=== PATIENT | female | born 1930 | race Caucasian/White ===

== ENCOUNTER 2016-10-26 20:28 | Emergency (ER) | payer MEDICARE ==
[2016-10-26 20:34] VITALS: BP 161/61
--- NOTE | 2016-10-26 21:04 | UC ---
Dizzy HPI HPI Summary: 86 y/o female , no significant pmhx 1 day hx of dizziness that started this morning,, very unsteady on her feet and cannot walk no chest pain , no n/v/d/c , no urinary sx. denies any headaches, no visual changes, - History Of Current Complaint Chief Complaint: UCDizziness Stated Complaint: DIZZY/OFF BALANCE Time Seen by Provider: 10/26/16 20:32 Hx Obtained From: Patient, Family/Mud Logger Onset/Duration: Gradual Onset, Lasting Days - 1, Still Present Timing: Constant Severity Initially: Severe Severity Currently: Severe Character: Head Spinning, Room Spinning, Weak, Dizzy Alleviating Factor(s): Lying Down, Closing Eyes Associated Signs And Symptoms: Negative: Nausea, Vomiting, Diaphoresis, Tinnitus , Chest Pain, SOB, Palpitations, Unsteady Gait, Visual Changes, Decreased Oral Intake, Change In Medication, Change In Diet, OTC Medications - Allergies/Home Medications Allergies/Adverse Reactions: Allergies Allergy/AdvReac Type Severity Reaction Status Date / Time Aloe Allergy Mild red Verified 10/26/16 20:34 PMH/Surg Hx/FS Hx/Imm Hx Previously Healthy: Yes - Surgical History Surgical History: Yes Surgery Procedure, Year, and Place: hysterectomy,tonsilectomy,cataract lens replacement - Family History Known Family History: Positive: Hypertension Negative: Blood Disorder - Social History Alcohol Use: None Substance Use Type: None Smoking Status (MU): Never Smoked Tobacco Review of Systems Constitutional: Negative Skin: Negative Eyes: Negative ENT: Negative Respiratory: Negative Neurological: Weakness All Other Systems Reviewed And Are Negative: Yes Physical Exam Triage Information Reviewed: Yes Appearance: Well-Appearing, No Pain Distress, Well-Nourished Vital Signs: Initial Vital Signs Temp 98.7 F 10/26/16 20:30 Pulse 72 10/26/16 20:30 Resp 18 10/26/16 20:30 BP 161/61 10/26/16 20:30 Pulse Ox 100 10/26/16 20:30 Vital Signs Reviewed: Yes Eyes: Positive: Conjunctiva Clear ENT: Positive: Normal ENT inspection, Hearing grossly normal, Pharynx normal Neck: Positive: Supple, Nontender, No Lymphadenopathy Respiratory: Positive: Chest non-tender, Lungs clear, Normal breath sounds, No respiratory distress Cardiovascular: Positive: RRR, No Murmur, Pulses Normal Abdominal Exam: Normal Abdomen Description: Positive: Nontender, Soft. Negative: CVA Tenderness (R), CVA Tenderness (L), Distended, Guarding Bowel Sounds: Positive: Present Musculoskeletal: Positive: Strength Intact, ROM Intact, No Edema Neurological: Positive: Alert. Negative: Unresponsive, Abnormal Muscle Tone UC Physical Exam Vital Signs On Initial Exam: Initial Vitals Temp Pulse Resp BP Pulse Ox 98.7 F 72 18 161/61 100 10/26/16 20:30 10/26/16 20:30 10/26/16 20:30 10/26/16 20:30 10/26/16 20:30 - Neurological Exam Neurological: Sensory/Motor Intact, Alert, Oriented to Person Place, Time, CN Intact II-III, Reflexes Intact, Abnormal Gait, Speech Normal Dizzy Course/Dx - Course Course Of Treatment: dizzy, unsteady gait. will have the pt. go to [facility] ED for eval. spoke with DR. Atkins - Differential Dx/Diagnosis Provider Diagnoses: dizzy. unsteady gait Discharge - Discharge Plan Condition: Stable Disposition: HOME Referrals: Pau Hansen MD [Primary Care Provider] -
== END 2016-10-26 21:08 | disposition left against medical advice (07) ==
LOC: UCCORT 20:28
DX: R42 Dizziness and giddiness (principal); R26.9 Unspecified abnormalities of gait and mobility
CPT/HCPCS: 93005; 99212; G0463

== ENCOUNTER 2016-12-31 20:40 | Emergency (ER) | payer MEDICARE ==
[2016-12-31 20:48] VITALS: BP 154/70
--- NOTE | 2016-12-31 20:48 | UC ---
Abdominal Pain Female HPI - HPI Summary HPI Summary: 86 YEAR OLD FEMALE PRESENTS WITH COMPLAINS OF SEVERE ABDOMINAL PAIN AND CONSTIPATION. - History of Current Complaint Stated Complaint: LOWER ABDOMINAL PAIN Time Seen by Provider: 12/31/16 20:45 Hx Obtained From: Patient Onset/Duration: Lasting Hours Severity Initially: Moderate Severity Currently: Moderate Pain Scale Used: 0-10 Numeric - 5 Location: Diffuse Character: Aching Aggravating Factor(s): Movement Alleviating Factor(s): Nothing Associated Signs and Symptoms: Positive: Constipation Allergies/Adverse Reactions: Allergies Allergy/AdvReac Type Severity Reaction Status Date / Time Aloe Allergy Mild red Verified 12/31/16 20:48 PMH/Surg Hx/FS Hx/Imm Hx Previously Healthy: Yes - Surgical History Surgical History: Yes Surgery Procedure, Year, and Place: hysterectomy,tonsilectomy,cataract lens replacement - Family History Known Family History: Positive: Hypertension Negative: Blood Disorder - Social History Alcohol Use: None Substance Use Type: None Smoking Status (MU): Never Smoked Tobacco Review of Systems Constitutional: Negative Skin: Negative Eyes: Negative ENT: Negative Respiratory: Negative Cardiovascular: Negative Gastrointestinal: Abdominal Pain, Nausea Genitourinary: Negative Motor: Negative Neurovascular: Negative Musculoskeletal: Negative Neurological: Negative Psychological: Negative All Other Systems Reviewed And Are Negative: Yes Physical Exam Triage Information Reviewed: Yes Eye Exam: Normal ENT Exam: Normal Dental Exam: Normal Neck exam: Normal Neck: Positive: 1 Respiratory Exam: Normal Cardiovascular Exam: Normal Abdomen Description: Positive: Distended Bowel Sounds: Positive: Present Musculoskeletal Exam: Normal Neurological Exam: Normal Psychological Exam: Normal Skin Exam: Normal Abd Pain Female Course/Dx - Differential Dx/Diagnosis Provider Diagnoses: SEVERE ABDOMINAL PAIN Discharge - Discharge Plan Condition: Stable Disposition: HOME Patient Education Materials: Abdominal Pain (ED) Referrals: Pau Hansen MD [Primary Care Provider] - Additional Instructions: PLEASE GO TO ER TO RULE PESUDO OBSTRUCTION VS CECAL VOLVULUS
== END 2016-12-31 20:59 | disposition home or self-care (01) ==
LOC: UCCORT 20:40
DX: R10.30 Lower abdominal pain, unspecified (principal); R11.0 Nausea; K59.00 Constipation, unspecified; Z90.710 Acquired absence of both cervix and uterus
CPT/HCPCS: 99211; G0463

== ENCOUNTER 2017-07-01 12:06 | Emergency (ER) | payer MEDICARE ==
[2017-07-01 13:48] VITALS: BP 181/60
--- NOTE | 2017-07-01 14:25 | UC ---
Back Pain HPI - HPI Summary HPI Summary: right lower back pain x 12 days s/p fall on her lower back 2 weeks ago , pain on her right lower back , no radiation , increase pain with movement , walking - History of Current Complaint Chief Complaint: UCBackPain Stated Complaint: BACK PAIN (FALL 06/19) Time Seen by Provider: 07/01/17 14:00 Hx Obtained From: Patient Onset/Duration: Sudden Onset, Lasting Days - 12, Still Present Timing: Constant Severity Initially: Moderate Severity Currently: Moderate Pain Intensity: 8 Back Pain: Is Discrete @ - right lower back Character: Aching Aggravating Factor(s): Movement, Lifting, Bending, Walking, Cough Alleviating Factor(s): Nothing Associated Signs And Symptoms: Negative: Swelling, Redness, Bruising, Fever, Weakness, Numbness, Tingling, Abdominal Pain, Flank Pain, Bladder Incontinence, Bowel Incontinence - Allergies/Home Medications Allergies/Adverse Reactions: Allergies Allergy/AdvReac Type Severity Reaction Status Date / Time aloe Allergy Rash Verified 07/01/17 13:45 Home Medications: Home Medications Acetaminophen TAB* [Tylenol TAB*] 650 mg PO Q4H PRN 07/01/17 [History Confirmed 07/01/17] Docusate Sodium [Colace] 100 mg PO DAILY 07/01/17 [History Confirmed 07/01/17] PMH/Surg Hx/FS Hx/Imm Hx Previously Healthy: Yes - Surgical History Surgical History: Yes Surgery Procedure, Year, and Place: hysterectomy,tonsilectomy,cataract lens replacement - Family History Known Family History: Positive: Hypertension Negative: Blood Disorder - Social History Alcohol Use: None Substance Use Type: None Smoking Status (MU): Never Smoked Tobacco Review of Systems Constitutional: Negative Skin: Negative Eyes: Negative ENT: Negative Respiratory: Negative Cardiovascular: Negative Is Patient Immunocompromised?: No All Other Systems Reviewed And Are Negative: Yes Physical Exam Triage Information Reviewed: Yes Appearance: Well-Appearing, No Pain Distress, Well-Nourished Vital Signs: Initial Vital Signs Temp 98.7 F 07/01/17 13:41 Pulse 77 07/01/17 13:41 Resp 16 07/01/17 13:41 BP 181/60 07/01/17 13:41 Pulse Ox 99 07/01/17 13:41 Vital Signs Reviewed: Yes Eyes: Positive: Conjunctiva Clear ENT: Positive: Normal ENT inspection, Hearing grossly normal, Pharynx normal, Pharyngeal erythema Neck: Positive: Supple, Nontender, No Lymphadenopathy Respiratory: Positive: Chest non-tender, Lungs clear, Normal breath sounds Cardiovascular: Positive: RRR, No Murmur, Pulses Normal Abdomen Description: Positive: Nontender, Soft Musculoskeletal: Positive: Other: - lowe back : + tenderness right lower back , no swelling, no ecchymosis pain with flexion and extension Back Pain Course/Dx - Differential Dx/Diagnosis Provider Diagnoses: contusion lower back Discharge - Discharge Plan Condition: Stable Disposition: HOME Patient Education Materials: Acute Low Back Pain (ED) Referrals: Pau Hansen MD [Primary Care Provider] - 7 Days Additional Instructions: cont. with rest, heating pads take Tylenol as needed for pain follow up with your pcp in one week
--- NOTE | 2017-07-01 14:38 | RAD ---
HISTORY: Fall, back pain COMPARISONS: MRI dated April 07, 2012 VIEWS: 5 , Frontal, lateral, coned-down lateral sacral, and bilateral oblique views of the lumbar spine. FINDINGS: ALIGNMENT: There is trace anterolisthesis of L2 on L3. There is mild scoliotic curvature of the spine. VERTEBRAL BODIES: There is diffuse osteopenia. The vertebral bodies are preserved in height. There are probable bilateral pars defects at L5. JOINTS: There is extensive facet osteoarthritis most pronounced along the lower lumbar spine INTERVERTEBRAL DISCS: There is diffuse loss of intervertebral disc height. SOFT TISSUE: Unremarkable. OTHER: There is mild osteoarthritis of the hips and SI joints. IMPRESSION: 1. OSTEOPENIA. 2. DEGENERATIVE DISC DISEASE AND OSTEOARTHRITIS. 3. 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
== END 2017-07-01 14:34 | disposition home or self-care (01) ==
LOC: UCCORT 12:06
DX: S30.0XXA Contusion of lower back and pelvis, initial encounter (principal); W19.XXXA Unspecified fall, initial encounter; Y93.9 Activity, unspecified; Y92.9 Unspecified place or not applicable
CPT/HCPCS: 72110; 99211; G0463